=== PATIENT | female | born 1955 | race Asian ===

== ENCOUNTER 2017-02-11 14:17 | Emergency (ER) | END 2017-02-11 18:52 | disposition home or self-care (01) | DX: R10.84 Generalized abdominal pain (principal); R19.7 Diarrhea, unspecified; N39.0 Urinary tract infection, site not specified | CPT/HCPCS: 36415; 80053; 81001; 83690; 85025; 96374; 96375; J0692; J1885; J2270; J2405; J7030; Z7502 ==

== ENCOUNTER 2017-07-11 19:33 | Emergency (ER) | payer OTHER ==
[~2017-07-11] VITALS: Ht 162.6 cm; Wt 50.0 kg
[~2017-07-11 19:33] MED LIST: CIPR500T4 PO; HYDR-906 PO; NAPR-688 PO; ONDA4TAB14 PO
[2017-07-11 19:37] VITALS: Ht 162.6 cm; Wt 50.0 kg
[2017-07-11] MEDS ORDERED: IBUPROFEN 600 MG TAB PO ONE (21:00)
[2017-07-11] MEDS ORDERED: DIAZEPAM 5 MG TAB PO ONE (21:00)
--- NOTE | 2017-07-11 21:52 | RADRPT ---
PROCEDURE: CT Brain without contrast. CLINICAL INDICATION: Headache. TECHNIQUE: A CT of the brain was performed utilizing axial imaging from the skull base through the vertex without IV contrast. Multiplanar reformatted images were made. Images were reviewed on a [employer] workstation. The CTDIvol is 45.01 mGy and the DLP is 720.23 mGycm. DICOM images are available. One or more of the following dose reduction techniques were utilized: 1.) Automated exposure control 2.) Adjustment of the mA +/- kV according to patient's size 3.) Use of iterative reconstruction technique. COMPARISON: None FINDINGS: There is no intracranial hemorrhage, mass effect, or midline shift. No extra-axial fluid collection is seen. The ventricles and sulci are normal in size and configuration. The density of the brain is normal, and the buenrostro white matter differentiation appears well-preserved. The visualized paranasal sinuses and osseous structures are grossly unremarkable. IMPRESSION: 1. No evidence of acute intracranial pathology. 2. The brain is normal in appearance. RPTAT: [facility] Physician Dalila Date Time Electronically viewed and signed by Physician Dalila on 07/11/2017 21:52 RS/
[2017-07-11 21:53] LABS: BASOPHILS % 0.7 % (0.0-2.0); EOSINOPHILS # 0.1 10^3/ul (0.0-0.5); HEMATOCRIT 37.1 % (37.0-47.0); LYMPHOCYTES # 2.9 10^3/ul (0.8-2.9); LYMPHOCYTES % 52.7 % (15.0-51.0); MEAN CORPUSCULAR HEMOGLOBIN 28.2 pg (29.0-33.0); MEAN CORPUSCULAR HGB CONC 32.3 g/dl (32.0-37.0); MEAN CORPUSCULAR VOLUME 87.1 fl (82.0-101.0); MONOCYTE # 0.3 10^3/ul (0.3-0.9); MONOCYTES % 5.7 % (0.0-11.0); NEUTROPHIL # 2.2 10^3/ul (1.6-7.5); NEUTROPHILS % 38.9 % (39.0-77.0); PLATELET COUNT 237 10^3/UL (140-415); RED BLOOD COUNT 4.26 10^6/ul (4.20-5.40); RED CELL DISTRIBUTION WIDTH 13.2 % (11.5-14.5); WHITE BLOOD COUNT 5.6 10^3/ul (4.8-10.8)
[2017-07-11 22:12] LABS: ALBUMIN 3.8 g/dl (3.3-4.9); ALBUMIN/GLOBULIN RATIO 1.22; BILIRUBIN,INDIRECT 0.3 mg/dl (0-1.1); BILIRUBIN,TOTAL 0.3 mg/dl (0.2-1.3); CALCIUM 9.4 mg/dl (8.4-10.2); CREATININE 0.82 mg/dl (0.44-1.00); POTASSIUM 3.8 mmol/L (3.5-5.1); TOTAL PROTEIN 6.9 g/dl (6.1-8.1)
[2017-07-11] MEDS ORDERED: ORPH100T PO (22:23)
[2017-07-11] MEDS ORDERED: IBUP-1542 PO (22:23)
--- NOTE | 2017-07-13 12:07 | ERD ---
ER Documentation Chief Complaint Chief Complaint right sided pain since last night HPI This is a 61-year-old female presents to the ER stating that last night she felt a "jolt" down the right side of her neck and face. Pain is now radiating down to her right shoulder down the right side of her back and down into the right leg. Patient denies any fevers or chills. She denies any weaknesses of her upper or lower extremities. States that her pain is 6 out of 10. Patient does not know how to describe pain, but states it has been constant. She has not taken any medication for her pain. She does admit to bilateral hand numbness. Patient denies any recent trauma to the neck or head. She has a past medical history of sciatica in the left leg. She denies any chest pain or shortness of breath. She denies any IV drug use. ROS 12 point review of systems was done, all negative except per HPI. Medications Home Meds Active Scripts Orphenadrine Citrate (Norflex) 100 Mg Tablet.sa, 100 MG PO BID for 7 Days, TAB.SA Prov:CASEY CARCAMO 07/11/17 Ibuprofen* (Motrin*) 600 Mg Tab, 600 MG PO Q6, #30 TAB Prov:CASEY CARCAMO 07/11/17 Ciprofloxacin Hcl* (Ciprofloxacin Hcl*) 500 Mg Tablet, 500 MG PO BID, #8 TAB Prov:ALIYAH TYSON DO 02/11/17 Ondansetron (Ondansetron Odt) 4 Mg Tab.rapdis, 4 MG PO Q6H Y for NAUSEA AND/OR VOMITING, #10 TAB Prov:ALIYAH TYSON DO 02/11/17 Naproxen* (Naproxen*) 500 Mg Tablet, 500 MG PO BID Y for PAIN, #20 TAB Prov:ALIYAH TYSON DO 02/11/17 Hydrocodone/Acetaminophen (Wilbur 5-325 Tablet) 1 Each Tablet, 1 EACH PO Q6, #20 TAB Prov:ALIYAH TYSON DO 02/11/17 Allergies Allergies: Coded Allergies: No Known Allergy (Unverified , 02/11/17) PMhx/Soc History of Surgery: No Anesthesia Reaction: No Hx Neurological Disorder: No Hx Respiratory Disorders: No Hx Cardiac Disorders: No Hx Psychiatric Problems: No Hx Miscellaneous Medical Probl: Yes (Sciatica) Hx Alcohol Use: No Hx Substance Use: No Hx Tobacco Use: No Smoking Status: Never smoker Physical Exam Vitals Vital Signs Date Time Temp Pulse Resp B/P Pulse Ox O2 Delivery O2 Flow Rate FiO2 07/11/17 19:37 96.5 73 20 133/72 98 Physical Exam GENERAL: The patient is well developed and appropriate for usual state of health , in no apparent distress. HEENT: Atraumatic. Conjunctivae are pink. Pupils equal, round, and reactive to light. Extraocular muscles are grossly intact. Bilateral tympanic membranes are clear with no evidence of erythema, bulging or perforation. No sinus tenderness. NECK: C-spine is soft and supple. There is no cervical lymphadenopathy. CHEST: Clear to auscultation bilaterally. There are no rales, wheezes or rhonchi. HEART: Regular rate and rhythm. No murmurs, clicks, rubs or gallops. EXTREMITIES: Equal pulses bilaterally. There is no peripheral clubbing, cyanosis or edema. No focal swelling or erythema. Full range of motion. Grossly neurovascularly intact. NEURO: Alert and oriented. Cranial nerves II through XII are intact. Motor strength in all 4 extremities with 5/5 strength. Sensation grossly intact. Normal speech and gait. Negative Rhomberg. +2 DTRs. SKIN: There is no apparent rash or petechia. The skin is warm and dry. Result Diagram: 07/11/17210907/11/172109 Results 24 hrs Laboratory Tests Test 07/11/17 21:10 White Blood Count 5.610^3/ul Red Blood Count 4.2610^6/ul Hemoglobin 12.0g/dl Hematocrit 37.1% Mean Corpuscular Volume 87.1fl Mean Corpuscular Hemoglobin 28.2pg Mean Corpuscular Hemoglobin Concent 32.3g/dl Red Cell Distribution Width 13.2% Platelet Count 72017^3/UL Mean Platelet Volume 11.0fl Neutrophils % 38.9% Lymphocytes % 52.7% Monocytes % 5.7% Eosinophils % 2.0% Basophils % 0.7% Nucleated Red Blood Cells % 0.0/100WBC Neutrophils # 2.210^3/ul Lymphocytes # 2.910^3/ul Monocytes # 0.310^3/ul Eosinophils # 0.110^3/ul Basophils # 0.010^3/ul Nucleated Red Blood Cells # 0.010^3/ul Sodium Level 137mmol/L Potassium Level 3.8mmol/L Chloride Level 101mmol/L Carbon Dioxide Level 29mmol/L Anion Gap 11 Blood Urea Nitrogen 16mg/dl Creatinine 0.82mg/dl Glucose Level 92mg/dl Calcium Level 9.4mg/dl Total Bilirubin 0.3mg/dl Direct Bilirubin 0.00mg/dl Indirect Bilirubin 0.3mg/dl Aspartate Amino Transf (AST/SGOT) 27IU/L Alanine Aminotransferase (ALT/SGPT) 39IU/L Alkaline Phosphatase 69IU/L Total Protein 6.9g/dl Albumin 3.8g/dl Globulin 3.10g/dl Albumin/Globulin Ratio 1.22 Current Medications Medications (Trade) Dose Ordered Sig/Jessica Route PRN Reason Start Time Stop Time Status Last Admin Dose Admin Diazepam (Valium) 5 mg ONCE ONCE PO 07/11/17 21:00 07/11/17 21:01 DC 07/11/17 21:05 Ibuprofen (Motrin) 600 mg ONCE ONCE PO 07/11/17 21:00 07/11/17 21:01 DC 07/11/17 21:01 [place] [id number] Radiology Main Line: [phone] DIAGNOSTIC IMAGING REPORT Patient: NOEMI LR : 1955 Age: 61 Sex: F MR #: [id number] DOS: 07/11/17 0000 Ordering MD: CASEY CARCAMO PA-C Location: [facility] Room/Bed: PROCEDURE: CT Brain without contrast. CLINICAL INDICATION: Headache. TECHNIQUE: A CT of the brain was performed utilizing axial imaging from the skull base through the vertex without IV contrast. Multiplanar reformatted images were made. Images were reviewed on a PACS workstation. The CTDIvol is 45.01 mGy and the DLP is 720.23 mGycm. DICOM images are available. One or more of the following dose reduction techniques were utilized: 1.) Automated exposure control 2.) Adjustment of the mA +/- kV according to patient's size 3.) Use of iterative reconstruction technique. COMPARISON: None FINDINGS: There is no intracranial hemorrhage, mass effect, or midline shift. No extra- axial fluid collection is seen. The ventricles and sulci are normal in size and configuration. The density of the brain is normal, and the buenrostro white matter differentiation appears well-preserved. The visualized paranasal sinuses and osseous structures are grossly unremarkable. IMPRESSION: 1. No evidence of acute intracranial pathology. 2. The brain is normal in appearance. RPTAT: [facility] Physician Dalila Date Time Electronically viewed and signed by Zarina Ocasio Physician on 07/11/2017 21:52 RS/ CC: CASEY CARCAMO Procedures/[facility] EKG was screened by Dr. Marshall-> negative for STEMI This is a 61-year-old female presents to the ER with entire right-sided body pain that started last night. Patient was neurologically intact with no focal neurological deficits. Suspicion for acute intracranial pathology is low. Etiology for right-sided body pain is unknown at this time, however suspicion for life-threatening pathology is low. Her physical examination was benign, she is afebrile and well-appearing and has full and nonpainful range of motion of upper and lower extremities with no weaknesses. There is no evidence of tachycardia or hypertension. Patient was given Valium and Ibuprofen in the ER and stated that it improved her pain. Patient should follow-up with her primary care doctor on Friday,or return to ER sooner if symptoms worsen. My medical decision making shared with the patient she understands and agrees with plan. Departure Diagnosis: Primary Impression: Pain Condition: Stable Patient Instructions: Myalgias Referrals: RICA BEARD (PCP) Additional Instructions: Call your primary care doctor TOMORROW for an appointment during the next 1-2 days.See the doctor sooner or return here if your condition worsens before your appointment time. CASEY CARCAMO Jul 13, 2017 12:07
== END 2017-07-11 22:39 | disposition home or self-care (01) ==
LOC: FTE 19:33
DX: M54.2 Cervicalgia (principal); R51 Headache
CPT/HCPCS: 70450; 80053; 85025; 93005; Z7502; Z7610

== ENCOUNTER 2017-11-24 14:47 | Emergency (ER) | END 2017-11-24 19:05 | disposition home or self-care (01) ==